=== PATIENT | female | born 1945 | race Caucasian/White ===

== ENCOUNTER → 2017-06-22 | Outpatient (CLI) | payer OTHER, MEDICARE ==
[~2017-06-22] MED LIST: AUGMENTIN 875875 MG PO; ESTRACE2 M1 PO; HYDROCODONE-APA1 TA1 PO; LEVOTHYROXIN0.175 MG PO; LISINOPRIL-HCT1 EAC2 PO; LISINOPRIL-HCT1 EACH PO; MECLIZINE HCL25 M1 PO; SIMVASTATIN40 MG PO; STATIN; SYNTHROID; VYTORIN 10-201 EACH PO; ZOFRAN ODT4 MG PO
== END ==
LOC: M.ULTRA 15:59
DX: E04.1 Nontoxic single thyroid nodule (principal)

== ENCOUNTER → 2018-01-25 | Outpatient (CLI) | payer OTHER, MEDICARE | LOC: M.RAD 01-18 07:00 | DX: Z12.31 Encounter for screening mammogram for malignant neoplasm of breast (principal) ==

== ENCOUNTER 2018-03-07 23:09 | Emergency (ER) | payer OTHER, MEDICARE ==
[~2018-03-07] VITALS: Ht 170.2 cm; Wt 113.4 kg
[2018-03-07] MEDS ORDERED: KEFLEX500 M1 (23:19)
[2018-03-08] MEDS ORDERED: BACTRIM DS TAB1 EACH PO (00:06)
[2018-03-08] MEDS ORDERED: NORCO 5-325 TA1 EAC1 PO (00:06)
[2018-03-08 00:15] LABS: ABSOLUTE EOSINOPHILS 0.3 thou/uL (0.0-0.7); ABSOLUTE LYMPHOCYTES 1.6 thou/uL (0.8-5.3); ABSOLUTE MONOCYTES 0.9 thou/uL (0.0-1.2); ABSOLUTE NEUTROPHILS 4.5 thou/uL (1.6-8.1); BASOPHILS 0.6 %; EOSINOPHILS 3.6 %; HEMATOCRIT 38.9 % (37.0-47.0); HEMOGLOBIN 13.3 gm/dL (12.0-15.0); LYMPHOCYTES 22.1 %; MCH 32.1 pg (26.0-34.0); MCHC 34.3 g/dL (28.0-37.0); MCV 93.3 fL (80.0-100.0); MONOCYTES 12.7 %; MPV 7.9 fl. (7.2-11.1); NUCLEATED RBCS 0 /100WBC; PLATELET COUNT* 175 thou/uL (150-400); RBC 4.16 mil/uL (4.20-5.00); RDW-CV 12.7 % (10.5-14.5); WBC 7.4 thou/uL (4.0-11.0)
[2018-03-08 00:19] LABS: CALCIUM 9.4 mg/dL (8.5-10.1); POTASSIUM 4.7 mmol/L (3.5-5.1)
[2018-03-08 00:23] LABS: ALBUMIN 3.5 g/dL (3.4-5.0); TOTAL BILIRUBIN 0.5 mg/dL (<0.1-1.0); TOTAL PROTEIN 7.4 g/dL (6.4-8.2)
[2018-03-08 00:56] VITALS: BP 153/73
== END 2018-03-08 00:58 | disposition still patient (30) ==
LOC: M.ERS 23:09
PROVIDERS: Nurse Practitioner Family
DX: L03.011 Cellulitis of right finger (principal); E78.00 Pure hypercholesterolemia, unspecified; E07.9 Disorder of thyroid, unspecified

== ENCOUNTER → 2019-02-02 | Outpatient (CLI) | payer OTHER, MEDICARE ==
[~2019-02-02] MED LIST changes: +BACTRIM DS TAB1 EACH PO; +KEFLEX500 M1; +NORCO 5-325 TA1 EAC1 PO
== END ==
LOC: M.RAD 16:30
DX: Z12.31 Encounter for screening mammogram for malignant neoplasm of breast (principal)

== ENCOUNTER 2019-02-28 18:05 | Emergency (ER) | payer OTHER, MEDICARE ==
[~2019-02-28] VITALS: Ht 170.2 cm; Wt 113.4 kg
[2019-02-28 19:40] LABS: INFLUENZA A ANTIGEN Negative (Negative); INFLUENZA B ANTIGEN Negative (Negative)
[2019-02-28] MEDS ORDERED: ZPAK PO (20:28)
[2019-02-28] MEDS ORDERED: MEDROLDOSEPACK PO (20:28)
[2019-02-28] MEDS ORDERED: PROAIR HFA8.5 GM INH (20:28)
[2019-02-28] MEDS ORDERED: TESSALON PERLE100 MG PO (20:28)
[2019-02-28] MEDS ORDERED: TYLENOL WITH CO1 TA1 PO (20:28)
[2019-02-28 20:59] VITALS: BP 148/102
== END 2019-02-28 21:00 | disposition home or self-care (01) ==
LOC: M.ERS 18:05
PROVIDERS: Family Medicine
DX: J40 Bronchitis, not specified as acute or chronic (principal); M25.562 Pain in left knee; M54.6 Pain in thoracic spine; E78.00 Pure hypercholesterolemia, unspecified